=== PATIENT | male | born 1975 | race Caucasian/White ===

== ENCOUNTER 2021-07-26 13:56 | Inpatient (IN) | payer MEDICAID, OTHER ==
[~2021-07-26] VITALS: Ht 160 cm; Wt 78.0 kg
[2021-07-26] MEDS ORDERED: METHYLPREDNISOLONE SOD SUCC 125 MG/2 ML VIAL IV ONE (15:00)
[2021-07-26] MEDS ORDERED: LEVOFLOXACIN 750MG PREMIX 150 ML IV ONE (15:00)
[2021-07-26] MEDS ORDERED: SODIUM CHLORIDE 0.9% 1,000 ML IV ONE (15:00)
[2021-07-26 15:13] LABS: BASOPHILS % 0.3 % (0.0-2.0); HEMATOCRIT. 43.4 % (42.0-52.0); HEMOGLOBIN. 15.3 g/dL (14.0-18.0); MEAN CORPUSCULAR VOLUME 87.8 fL (80.0-94.0); MEAN PLATELET VOLUME 8.7 fl (7.4-10.4); MONOCYTES % 9.1 % (2.0-8.0); NEUTROPHILS % 82.6 % (40.0-76.0); PLATELET 277 x1000/uL (130-400); RED BLOOD CELL COUNT 4.94 mill/uL (4.7-6.1)
[2021-07-26 15:14] LABS: CHLORIDE 97 mEq/L (98-107)
[2021-07-26 15:17] LABS: ETHANOL BLOOD < 10 mg/dL
[2021-07-26 15:46] LABS: INR 1.2; PROTHROMBIN TIME 12.4 sec (9.6-11.0)
[2021-07-26 21:46] LABS: *AMPHETAMINES SCREEN URINE NEGATIVE (NEGATIVE); *BARBITURATES SCREEN URINE NEGATIVE (NEGATIVE)
[2021-07-26 21:47] LABS: *BENZODIAZEPINES SCREEN URINE NEGATIVE (NEGATIVE); *COCAINE SCREEN URINE NEGATIVE (NEGATIVE); CANNABINOID URINE SCREEN NEGATIVE (NEGATIVE); METHADONE URINE SCREEN NEGATIVE (NEGATIVE); OPIATES URINE SCREEN PRESUMTIVE POSITIVE (NEGATIVE); PHENCYCLIDINE URINE SCREEN NEGATIVE (NEGATIVE)
[2021-07-26] MEDS ORDERED: ONDANSETRON HCL 4MG/2ML INJ IV PRN (22:00)
[2021-07-26] MEDS ORDERED: GUAIFENESIN 200MG/10ML SUGAR FREE UDC PO PRN (22:00)
[2021-07-26] MEDS ORDERED: CEFTRIAXONE 1 G PREMIX 50 ML IV SCH (22:30)
[2021-07-26] MEDS: ENOXAPARIN 40MG/0.4ML SYR SUBCUT SCH (22:50)
[2021-07-26 22:55] LABS: CLARITY URINE CLEAR (CLEAR); COLOR URINE DARK YELLOW (YELLOW); PROTEIN URINE 1+ (NEGATIVE)
[2021-07-26 22:56] LABS: KETONES URINE TRACE (NEGATIVE); LEUKOCYTE ESTERASE URINE NEGATIVE (NEGATIVE); NITRITE URINE NEGATIVE (NEGATIVE); OCCULT BLOOD URINE NEGATIVE (NEGATIVE); UROBILINOGEN URINE 0.2 E.U./dL (0.2-1.0)
[2021-07-26] MEDS ORDERED: AZITHROMYCIN 500MG/250ML 500 ML IV SCH (23:00)
[2021-07-26] MEDS ORDERED: DIPHENHYDRAMINE 25MG CAPSULE PO PRN (23:30)
[2021-07-27 04:39] LABS: BASOPHILS % 0.3 % (0.0-2.0); HEMATOCRIT. 44.1 % (42.0-52.0); HEMOGLOBIN. 15.6 g/dL (14.0-18.0); LYMPHOCYTES % 9.7 % (20.0-50.0); MEAN CORPUSCULAR HEMOGLOBIN 31.2 pg (28.0-32.0); MEAN CORPUSCULAR VOLUME 88.3 fL (80.0-94.0); MEAN PLATELET VOLUME 8.3 fl (7.4-10.4); MONOCYTES % 6.2 % (2.0-8.0); NEUTROPHILS % 83.8 % (40.0-76.0); PLATELET 312 x1000/uL (130-400); RED BLOOD CELL COUNT 4.99 mill/uL (4.7-6.1); RED CELL DISTRIBUTION WIDTH 12.9 % (11.6-14.6)
[2021-07-27 04:42] LABS: CHLORIDE 99 mEq/L (98-107)
[2021-07-27 04:49] LABS: PHOSPHORUS 2.8 mg/dL (2.5-4.9)
[2021-07-27 08:30] VITALS: BP 112/71
[2021-07-27 09:00] VITALS: BP 119/88
[2021-07-27] MEDS: DEXAMETHASONE 10 MG/ML VIAL IV SCH (09:12)
[2021-07-27] MEDS ORDERED: INFLUENZA VACCINE 05/PF 0.5 ML SYRINGE IM ONE (10:30)
[2021-07-27] MEDS ORDERED: PNEUMOCOCCAL 23-VAL P-SAC VAC 0.5 ML IM ONE (10:30)
[2021-07-27 12:00] VITALS: BP 126/65
[2021-07-27] MEDS: ALBUTEROL 6.7GM HFA INHALER ORI SCH ×3 (12:48→20:52)
[2021-07-27] MEDS: GUAIFENESIN-DM 200MG-20MG/10ML UDC PO PRN ×2 (12:50→17:22)
[2021-07-27 16:00] VITALS: BP 123/73
[2021-07-27 20:01] VITALS: BP 123/75
[2021-07-27] MEDS: ENOXAPARIN 40MG/0.4ML SYR SUBCUT SCH (20:51)
[2021-07-27] MEDS: CEFTRIAXONE 1,000 MG in DEXTROSE 5% WATER 50 ML IV SCH (20:52)
[2021-07-27] MEDS ORDERED: AZITHROMYCIN 500MG/250ML 500 ML IV SCH (22:00)
[2021-07-28 00:03] VITALS: BP 131/69
[2021-07-28] MEDS: ALBUTEROL 6.7GM HFA INHALER ORI SCH ×7 (00:12→23:33)
[2021-07-28] MEDS: GUAIFENESIN-DM 200MG-20MG/10ML UDC PO PRN ×2 (01:16→08:07)
[2021-07-28 04:00] VITALS: BP 125/69
[2021-07-28 07:15] LABS: HEMATOCRIT. 41.9 % (42.0-52.0); HEMOGLOBIN. 14.2 g/dL (14.0-18.0); MEAN CORPUSCULAR HEMOGLOBIN 30.1 pg (28.0-32.0); MEAN PLATELET VOLUME 8.8 fl (7.4-10.4); PLATELET 403 x1000/uL (130-400); RED CELL DISTRIBUTION WIDTH 13.1 % (11.6-14.6)
[2021-07-28 07:29] LABS: CHLORIDE 100 mEq/L (98-107)
[2021-07-28 07:40] LABS: PHOSPHORUS 3.8 mg/dL (2.5-4.9)
[2021-07-28 08:00] VITALS: BP 106/69
[2021-07-28] MEDS: DEXAMETHASONE 10 MG/ML VIAL IV SCH (08:07)
[2021-07-28] MEDS: BENZONATATE 100MG CAPSULE PO SCH ×2 (11:19→21:26)
[2021-07-28 12:00] VITALS: BP 123/72
[2021-07-28 16:00] VITALS: BP 123/67
[2021-07-28 20:00] VITALS: BP 102/80
[2021-07-28 20:05] LABS: PLATELET ESTIMATE INCREASED
[2021-07-28] MEDS: CEFTRIAXONE 1,000 MG in DEXTROSE 5% WATER 50 ML IV SCH (21:26)
[2021-07-28] MEDS: ACETAMINOPHEN 325MG TABLET PO PRN (21:27)
[2021-07-28] MEDS: ENOXAPARIN 40MG/0.4ML SYR SUBCUT SCH (21:27)
[2021-07-28] MEDS: AZITHROMYCIN 500 MG in DEXT 5% WATER 500 ML IV SCH (23:32)
[2021-07-29] VITALS: BP 115/75
[2021-07-29] MEDS: ALBUTEROL 6.7GM HFA INHALER ORI SCH ×5 (03:19→20:24)
[2021-07-29 04:00] VITALS: BP 115/80
[2021-07-29 05:48] LABS: CHLORIDE 102 mEq/L (98-107)
[2021-07-29 05:56] LABS: HEMATOCRIT. 43.8 % (42.0-52.0); HEMOGLOBIN. 14.9 g/dL (14.0-18.0); LYMPHOCYTES % 8.9 % (20.0-50.0); MEAN CORPUSCULAR HEMOGLOBIN 30.7 pg (28.0-32.0); MEAN CORPUSCULAR VOLUME 90.1 fL (80.0-94.0); MEAN PLATELET VOLUME 8.9 fl (7.4-10.4); MONOCYTES % 13.5 % (2.0-8.0); NEUTROPHILS % 77.6 % (40.0-76.0); PLATELET 454 x1000/uL (130-400); RED BLOOD CELL COUNT 4.86 mill/uL (4.7-6.1); RED CELL DISTRIBUTION WIDTH 13.2 % (11.6-14.6)
[2021-07-29 06:07] LABS: PHOSPHORUS 4.1 mg/dL (2.5-4.9)
[2021-07-29] MEDS: BENZONATATE 100MG CAPSULE PO SCH ×3 (06:10→20:24)
[2021-07-29 06:17] LABS: HEPATITIS B SURFACE AB < 3.1 mIU/mL
[2021-07-29 06:28] LABS: HEPATITIS B SURFACE ANTIGEN NEGATIVE
[2021-07-29 08:00] VITALS: BP 123/81
[2021-07-29] MEDS: DEXAMETHASONE 10 MG/ML VIAL IV SCH (08:01)
[2021-07-29] MEDS: GUAIFENESIN-DM 200MG-20MG/10ML UDC PO PRN (08:01)
[2021-07-29 08:38] LABS: BG BASE EXCESS 2.6 mmol/L (-2.0-2.0); BG CARBOXYHEMOGLOBIN 0.6 % (0.5-1.5); BG DEOXYHEMOGLOBIN 9.8 % (0.0-5.0); BG FRACTION INSPIRED OXYGEN 100; BG HCO3 ACT 25.6 mmol/L (22.0-26.0); BG METHEMOGLOBIN 0.1 % (0.0-1.5); BG OXYGEN SATURATION 90.1 % (92.0-98.5); BG OXYHEMOGLOBIN 89.5 % (94.0-97.0); BG PCO2 34.6 mmHg (35.0-45.0); BG PH 7.487 (7.350-7.450); BG PO2 56.8 mmHg (75.0-100.0); BG SAMPLE SITE RIGHT RADIAL; BG TOTAL HEMOGLOBIN 15.2 g/dL (12.0-18.0); BG VENT MODE MASK - NRB
[2021-07-29 12:00] VITALS: BP 113/74
[2021-07-29 16:00] VITALS: BP 112/70
[2021-07-29 20:00] VITALS: BP 122/88
[2021-07-29] MEDS: ENOXAPARIN 40MG/0.4ML SYR SUBCUT SCH (20:24)
[2021-07-29] MEDS: AZITHROMYCIN 500 MG in DEXT 5% WATER 500 ML IV SCH (20:24)
[2021-07-29] MEDS: CEFTRIAXONE 1,000 MG in DEXTROSE 5% WATER 50 ML IV SCH (20:24)
[2021-07-30] VITALS: BP 113/67
[2021-07-30] MEDS: ALBUTEROL 6.7GM HFA INHALER ORI SCH ×7 (00:15→23:45)
[2021-07-30 04:00] VITALS: BP 132/89
[2021-07-30] MEDS: BENZONATATE 100MG CAPSULE PO SCH ×3 (04:03→22:00)
[2021-07-30 08:00] VITALS: BP 104/68
[2021-07-30] MEDS: DEXAMETHASONE 10 MG/ML VIAL IV SCH (08:43)
[2021-07-30 12:00] VITALS: BP 122/82
[2021-07-30 16:00] VITALS: BP 124/84
[2021-07-30 19:21] VITALS: BP 117/74
[2021-07-30] MEDS: GUAIFENESIN-DM 200MG-20MG/10ML UDC PO PRN (20:44)
[2021-07-30] MEDS: ENOXAPARIN 40MG/0.4ML SYR SUBCUT SCH (20:44)
[2021-07-30] MEDS: CEFTRIAXONE 1,000 MG in DEXTROSE 5% WATER 50 ML IV SCH (20:45)
[2021-07-31] VITALS (7 sets, daily range): BP systolic 98–134; BP diastolic 60–94
[2021-07-31] MEDS: GUAIFENESIN-DM 200MG-20MG/10ML UDC PO PRN ×2 (03:20→12:48)
[2021-07-31] MEDS: AZITHROMYCIN 500 MG TABLET PO SCH ×2 (03:20→03:28)
[2021-07-31] MEDS: BENZONATATE 100MG CAPSULE PO SCH ×3 (07:42→22:06)
[2021-07-31] MEDS: ALBUTEROL 6.7GM HFA INHALER ORI SCH ×6 (07:43→23:45)
[2021-07-31 08:11] LABS: CHLORIDE 101 mEq/L (98-107)
[2021-07-31 08:20] LABS: HEMATOCRIT. 43.6 % (42.0-52.0); HEMOGLOBIN. 14.8 g/dL (14.0-18.0); MEAN CORPUSCULAR HEMOGLOBIN 30.1 pg (28.0-32.0); MEAN CORPUSCULAR VOLUME 88.6 fL (80.0-94.0); MEAN PLATELET VOLUME 7.9 fl (7.4-10.4); PLATELET 584 x1000/uL (130-400); RED BLOOD CELL COUNT 4.91 mill/uL (4.7-6.1); RED CELL DISTRIBUTION WIDTH 13.5 % (11.6-14.6)
[2021-07-31] MEDS: DEXAMETHASONE 10 MG/ML VIAL IV SCH (09:12)
[2021-07-31] MEDS: ACETAMINOPHEN 325MG TABLET PO PRN (09:29)
[2021-07-31 10:04] LABS: BG BASE EXCESS 1.5 mmol/L (-2.0-2.0); BG CARBOXYHEMOGLOBIN 0.4 % (0.5-1.5); BG DEOXYHEMOGLOBIN 4.1 % (0.0-5.0); BG FRACTION INSPIRED OXYGEN 100; BG HCO3 ACT 23.1 mmol/L (22.0-26.0); BG METHEMOGLOBIN 0.1 % (0.0-1.5); BG OXYGEN SATURATION 95.9 % (92.0-98.5); BG OXYHEMOGLOBIN 95.4 % (94.0-97.0); BG PCO2 28.7 mmHg (35.0-45.0); BG PH 7.523 (7.350-7.450); BG PO2 76.3 mmHg (75.0-100.0); BG SAMPLE SITE LEFT BRACHIAL; BG TOTAL HEMOGLOBIN 15.1 g/dL (12.0-18.0); BG VENT MODE MASK - BIPAP
[2021-07-31 18:06] LABS: PLATELET ESTIMATE INCREASED
[2021-07-31] MEDS: ENOXAPARIN 40MG/0.4ML SYR SUBCUT SCH (22:07)
[2021-07-31] MEDS: CEFTRIAXONE 1,000 MG in DEXTROSE 5% WATER 50 ML IV SCH (22:07)
[2021-08-01] VITALS: BP 104/63
[2021-08-01 04:00] VITALS: BP 115/74
[2021-08-01] MEDS: ALBUTEROL 6.7GM HFA INHALER ORI SCH ×5 (05:15→19:44)
[2021-08-01] MEDS: BENZONATATE 100MG CAPSULE PO SCH ×3 (05:15→21:29)
[2021-08-01 08:00] VITALS: BP 113/79
[2021-08-01] MEDS: DEXAMETHASONE 10 MG/ML VIAL IV SCH (08:10)
[2021-08-01 12:00] VITALS: BP 111/74
[2021-08-01 16:00] VITALS: BP 118/73
[2021-08-01] MEDS: ACETAMINOPHEN 325MG TABLET PO PRN (19:44)
[2021-08-01 20:00] VITALS: BP 124/69
[2021-08-01] MEDS: CEFTRIAXONE 1,000 MG in DEXTROSE 5% WATER 50 ML IV SCH (21:28)
[2021-08-01] MEDS: ENOXAPARIN 40MG/0.4ML SYR SUBCUT SCH (21:29)
[2021-08-02] VITALS: BP 105/68
[2021-08-02] MEDS: ALBUTEROL 6.7GM HFA INHALER ORI SCH ×6 (00:06→21:14)
[2021-08-02 04:00] VITALS: BP 105/72
[2021-08-02] MEDS: BENZONATATE 100MG CAPSULE PO SCH ×3 (06:10→21:13)
[2021-08-02 08:00] VITALS: BP 111/81
[2021-08-02] MEDS: DEXAMETHASONE 10 MG/ML VIAL IV SCH (08:26)
[2021-08-02] MEDS: GUAIFENESIN-DM 200MG-20MG/10ML UDC PO PRN ×2 (08:26→18:53)
[2021-08-02] MEDS: ACETAMINOPHEN 325MG TABLET PO PRN ×2 (08:26→18:53)
[2021-08-02 12:00] VITALS: BP 108/59
[2021-08-02 12:33] LABS: BG CARBOXYHEMOGLOBIN 0.2 % (0.5-1.5); BG DEOXYHEMOGLOBIN 4.4 % (0.0-5.0); BG FRACTION INSPIRED OXYGEN 100; BG HCO3 ACT 26.6 mmol/L (22.0-26.0); BG METHEMOGLOBIN 0.3 % (0.0-1.5); BG OXYGEN SATURATION 95.6 % (92.0-98.5); BG OXYHEMOGLOBIN 95.1 % (94.0-97.0); BG PCO2 41.3 mmHg (35.0-45.0); BG PH 7.426 (7.350-7.450); BG PO2 81.7 mmHg (75.0-100.0); BG SAMPLE SITE RIGHT BRACHIAL; BG TOTAL HEMOGLOBIN 15.3 g/dL (12.0-18.0); BG TOTAL RESPIRATORY RATE 34 b/min; BG VENT MODE MASK - BIPAP
[2021-08-02 16:00] VITALS: BP 106/63
[2021-08-02 20:00] VITALS: BP 105/71
[2021-08-02] MEDS: ENOXAPARIN 40MG/0.4ML SYR SUBCUT SCH (21:14)
[2021-08-03] VITALS (29 sets, daily range): BP systolic 103–152; BP diastolic 62–101
[2021-08-03] MEDS: ALBUTEROL 6.7GM HFA INHALER ORI SCH ×6 (02:09→21:27)
[2021-08-03] MEDS: GUAIFENESIN-DM 200MG-20MG/10ML UDC PO PRN (02:09)
[2021-08-03] MEDS: ACETAMINOPHEN 325MG TABLET PO PRN ×4 (02:10→20:11)
[2021-08-03] MEDS: BENZONATATE 100MG CAPSULE PO SCH ×3 (06:31→21:16)
[2021-08-03] MEDS: DEXAMETHASONE 10 MG/ML VIAL IV SCH (08:05)
[2021-08-03 10:09] LABS: BG BASE EXCESS 1.2 mmol/L (-2.0-2.0); BG CARBOXYHEMOGLOBIN 0.3 % (0.5-1.5); BG DEOXYHEMOGLOBIN 11.2 % (0.0-5.0); BG FRACTION INSPIRED OXYGEN 100; BG HCO3 ACT 25.1 mmol/L (22.0-26.0); BG OXYGEN SATURATION 88.8 % (92.0-98.5); BG OXYHEMOGLOBIN 88.5 % (94.0-97.0); BG PCO2 37.5 mmHg (35.0-45.0); BG PH 7.443 (7.350-7.450); BG PO2 58.2 mmHg (75.0-100.0); BG SAMPLE SITE LEFT BRACHIAL; BG TOTAL HEMOGLOBIN 14.9 g/dL (12.0-18.0); BG TOTAL RESPIRATORY RATE 35 b/min; BG VENT MODE MASK - BIPAP
[2021-08-03 16:10] LABS: BG BASE EXCESS 2.8 mmol/L (-2.0-2.0); BG CARBOXYHEMOGLOBIN 0.3 % (0.5-1.5); BG DEOXYHEMOGLOBIN 23.2 % (0.0-5.0); BG FRACTION INSPIRED OXYGEN 100; BG HCO3 ACT 26.5 mmol/L (22.0-26.0); BG METHEMOGLOBIN 0.1 % (0.0-1.5); BG OXYGEN SATURATION 76.7 % (92.0-98.5); BG OXYHEMOGLOBIN 76.4 % (94.0-97.0); BG PCO2 37.9 mmHg (35.0-45.0); BG PH 7.462 (7.350-7.450); BG PO2 41.3 mmHg (75.0-100.0); BG SAMPLE SITE RIGHT RADIAL; BG TOTAL HEMOGLOBIN 15.1 g/dL (12.0-18.0); BG VENT MODE MASK - BIPAP
[2021-08-03] MEDS: ENOXAPARIN 40MG/0.4ML SYR SUBCUT SCH (20:11)
[2021-08-04] VITALS (83 sets, daily range): BP systolic 97–156; BP diastolic 21–103
[2021-08-04] MEDS: ALBUTEROL 6.7GM HFA INHALER ORI SCH ×6 (01:29→21:20)
[2021-08-04] MEDS: GUAIFENESIN-DM 200MG-20MG/10ML UDC PO PRN (01:37)
[2021-08-04] MEDS: ACETAMINOPHEN 325MG TABLET PO PRN ×4 (01:38→21:42)
[2021-08-04] MEDS: BENZONATATE 100MG CAPSULE PO SCH ×3 (05:04→21:42)
[2021-08-04 05:41] LABS: HEMATOCRIT. 40.4 % (42.0-52.0); HEMOGLOBIN. 13.7 g/dL (14.0-18.0); MEAN CORPUSCULAR HEMOGLOBIN 30.6 pg (28.0-32.0); MEAN CORPUSCULAR VOLUME 90.2 fL (80.0-94.0); MEAN PLATELET VOLUME 7.8 fl (7.4-10.4); PLATELET 585 x1000/uL (130-400); RED BLOOD CELL COUNT 4.49 mill/uL (4.7-6.1); RED CELL DISTRIBUTION WIDTH 13.2 % (11.6-14.6)
[2021-08-04 06:50] LABS: CHLORIDE 104 mEq/L (98-107)
[2021-08-04 08:12] LABS: PLATELET ESTIMATE INCREAS
[2021-08-04] MEDS: DEXAMETHASONE 10 MG/ML VIAL IV SCH (09:10)
[2021-08-04 11:52] LABS: BG BASE EXCESS 2.9 mmol/L (-2.0-2.0); BG CARBOXYHEMOGLOBIN 0.8 % (0.5-1.5); BG DEOXYHEMOGLOBIN 23.3 % (0.0-5.0); BG FRACTION INSPIRED OXYGEN 100; BG METHEMOGLOBIN 0.3 % (0.0-1.5); BG OXYGEN SATURATION 76.4 % (92.0-98.5); BG OXYHEMOGLOBIN 75.6 % (94.0-97.0); BG PCO2 35.6 mmHg (35.0-45.0); BG PH 7.482 (7.350-7.450); BG PO2 41.1 mmHg (75.0-100.0); BG SAMPLE SITE LEFT BRACHIAL; BG TOTAL HEMOGLOBIN 15.5 g/dL (12.0-18.0); BG TOTAL RESPIRATORY RATE 34 b/min; BG VENT MODE MASK - CPAP
[2021-08-04] MEDS: ENOXAPARIN 40MG/0.4ML SYR SUBCUT SCH (21:42)
[2021-08-05] VITALS (73 sets, daily range): BP systolic 77–147; BP diastolic 36–116
[2021-08-05] MEDS: ALBUTEROL 6.7GM HFA INHALER ORI SCH ×3 (00:23→20:24)
[2021-08-05] MEDS: ACETAMINOPHEN 325MG TABLET PO PRN ×3 (04:51→19:51)
[2021-08-05] MEDS: BENZONATATE 100MG CAPSULE PO SCH ×3 (05:43→22:54)
[2021-08-05] MEDS: DEXAMETHASONE 10 MG/ML VIAL IV SCH (09:21)
[2021-08-05] MEDS: CEFEPIME 2,000 MG in DEXT 5% WATER 100 ML IV SCH ×2 (18:04→22:55)
[2021-08-05] MEDS: ENOXAPARIN 40MG/0.4ML SYR SUBCUT SCH (20:09)
[2021-08-06] VITALS (102 sets, daily range): BP systolic 74–177; BP diastolic 47–115
[2021-08-06] MEDS: ALBUTEROL 6.7GM HFA INHALER ORI SCH ×5 (00:54→20:39)
[2021-08-06] MEDS: ACETAMINOPHEN 325MG TABLET PO PRN (02:02)
[2021-08-06 05:22] LABS: HEMATOCRIT. 45.3 % (42.0-52.0); HEMOGLOBIN. 15.2 g/dL (14.0-18.0); MEAN CORPUSCULAR HEMOGLOBIN 30.7 pg (28.0-32.0); MEAN CORPUSCULAR VOLUME 91.5 fL (80.0-94.0); PLATELET 193 x1000/uL (130-400); RED BLOOD CELL COUNT 4.95 mill/uL (4.7-6.1); RED CELL DISTRIBUTION WIDTH 13.5 % (11.6-14.6)
[2021-08-06 05:38] LABS: CHLORIDE 101 mEq/L (98-107)
[2021-08-06] MEDS: BENZONATATE 100MG CAPSULE PO SCH ×3 (06:00→21:53)
[2021-08-06] MEDS ORDERED: MORPHINE SULFATE 2 MG/ML CPJ (NOT FOR IM USE) IV SCH (07:00)
[2021-08-06] MEDS ORDERED: MIDAZOLAM HCL 100 MG in SODIUM CHLORIDE 0.9% 100 ML IV PRN (07:15)
[2021-08-06] MEDS ORDERED: MIDAZOLAM 100MG/100ML PMX 100 ML IV PRN (07:15)
[2021-08-06] MEDS ORDERED: FENTANYL CITRATE/PF 500 MCG in SODIUM CHLORIDE 0.9% 40 ML IV PRN (07:15)
[2021-08-06] MEDS: FENTANYL CITRATE 2,500 MCG in SODIUM CHLORIDE 0.9% 200 ML IV PRN ×3 (08:15→23:00)
[2021-08-06] MEDS: PROPOFOL 10MG/ML 100ML 100 ML IV PRN ×4 (08:16→22:59)
[2021-08-06] MEDS: DEXAMETHASONE 10 MG/ML VIAL IV SCH (09:40)
[2021-08-06] MEDS: CEFEPIME 2,000 MG in DEXT 5% WATER 100 ML IV SCH ×2 (09:40→20:29)
[2021-08-06] MEDS ORDERED: ETOMIDATE 2MG/ML 10ML VIAL IV ONE (09:47)
[2021-08-06] MEDS ORDERED: VECURONIUM BROMIDE 10 MG/VIAL IV ONE (09:47)
[2021-08-06] MEDS ORDERED: SUCCINYLCHOLINE CHLORIDE 200MG/10ML IV ONE (09:47)
[2021-08-06 10:12] LABS: BG BASE EXCESS -2.4 mmol/L (-2.0-2.0); BG CARBOXYHEMOGLOBIN 0.7 % (0.5-1.5); BG DEOXYHEMOGLOBIN 19.3 % (0.0-5.0); BG FRACTION INSPIRED OXYGEN 100; BG HCO3 ACT 25.1 mmol/L (22.0-26.0); BG METHEMOGLOBIN 0.3 % (0.0-1.5); BG OXYGEN SATURATION 80.5 % (92.0-98.5); BG OXYHEMOGLOBIN 79.7 % (94.0-97.0); BG PCO2 52.7 mmHg (35.0-45.0); BG PH 7.295 (7.350-7.450); BG PO2 54.5 mmHg (75.0-100.0); BG SAMPLE SITE RIGHT RADIAL; BG TOTAL HEMOGLOBIN 17.1 g/dL (12.0-18.0); BG VENT MODE VENT - AC
[2021-08-06] MEDS ORDERED: LIDOCAINE HCL 1% 20ML VIAL (Pyxis) INJ ONE (10:38)
[2021-08-06] MEDS: MIDAZOLAM HCL 100 MG in SODIUM CHLORIDE 0.9% 80 ML IV PRN (13:30)
[2021-08-06] MEDS: PHENYLEPHRINE 50 MG in DEXT 5% WATER 245 ML IV PRN ×3 (13:31→22:59)
[2021-08-06 13:47] LABS: PLATELET ESTIMATE NORMAL
[2021-08-06] MEDS: ENOXAPARIN 40MG/0.4ML SYR SUBCUT SCH (20:30)
[2021-08-07] VITALS (97 sets, daily range): BP systolic 73–138; BP diastolic 50–99
[2021-08-07] MEDS: ALBUTEROL 6.7GM HFA INHALER ORI SCH ×6 (00:37→20:40)
[2021-08-07] MEDS: MIDAZOLAM HCL 100 MG in SODIUM CHLORIDE 0.9% 80 ML IV PRN ×4 (02:00→23:11)
[2021-08-07] MEDS: FENTANYL CITRATE 2,500 MCG in SODIUM CHLORIDE 0.9% 200 ML IV PRN ×4 (02:00→22:03)
[2021-08-07] MEDS: PROPOFOL 10MG/ML 100ML 100 ML IV PRN ×4 (02:25→22:05)
[2021-08-07] MEDS: ACETAMINOPHEN 325MG TABLET PO PRN (05:00)
[2021-08-07] MEDS: BENZONATATE 100MG CAPSULE PO SCH (05:29)
[2021-08-07] MEDS: DEXAMETHASONE 10 MG/ML VIAL IV SCH (08:22)
[2021-08-07] MEDS: CEFEPIME 2,000 MG in DEXT 5% WATER 100 ML IV SCH ×2 (08:22→20:27)
[2021-08-07 09:18] LABS: BG BASE EXCESS -1.9 mmol/L (-2.0-2.0); BG CARBOXYHEMOGLOBIN 0.3 % (0.5-1.5); BG DEOXYHEMOGLOBIN 10.3 % (0.0-5.0); BG HCO3 ACT 25.6 mmol/L (22.0-26.0); BG METHEMOGLOBIN 0.5 % (0.0-1.5); BG OXYGEN SATURATION 89.6 % (92.0-98.5); BG OXYHEMOGLOBIN 88.9 % (94.0-97.0); BG PCO2 53.5 mmHg (35.0-45.0); BG PH 7.298 (7.350-7.450); BG PO2 63.2 mmHg (75.0-100.0); BG SAMPLE SITE RIGHT RADIAL; BG TOTAL HEMOGLOBIN 17.4 g/dL (12.0-18.0); BG VENT MODE VENT - AC
[2021-08-07] MEDS: PHENYLEPHRINE 50 MG in DEXT 5% WATER 245 ML IV PRN ×3 (09:59→22:28)
[2021-08-07] MEDS ORDERED: BISACODYL 10MG SUPP PR PRN (11:30)
[2021-08-07 12:06] LABS: HEMATOCRIT. 50.7 % (42.0-52.0); HEMOGLOBIN. 16.4 g/dL (14.0-18.0); MEAN CORPUSCULAR HEMOGLOBIN 30.5 pg (28.0-32.0); MEAN CORPUSCULAR VOLUME 94.5 fL (80.0-94.0); MEAN PLATELET VOLUME 9.6 fl (7.4-10.4); PLATELET 167 x1000/uL (130-400); RED BLOOD CELL COUNT 5.37 mill/uL (4.7-6.1); RED CELL DISTRIBUTION WIDTH 14.3 % (11.6-14.6)
[2021-08-07 12:09] LABS: CHLORIDE 105 mEq/L (98-107)
[2021-08-07 12:25] LABS: PLATELET ESTIMATE NORMAL
[2021-08-07] MEDS ORDERED: SODIUM POLYSTYRENE SULFONATE 15 G/60 ML BOT PO SCH (13:45)
[2021-08-07] MEDS: DOCUSATE SODIUM SUGAR FREE 100MG/10ML UDC NG SCH (16:01)
[2021-08-07] MEDS ORDERED: SODIUM CHLORIDE 0.9% 500 ML IV ONE ×2 (17:15→19:15)
[2021-08-07] MEDS: ENOXAPARIN 40MG/0.4ML SYR SUBCUT SCH (20:26)
[2021-08-07] MEDS: FAMOTIDINE 20MG/2ML VIAL IV SCH (20:27)
[2021-08-08] VITALS (58 sets, daily range): BP systolic 78–127; BP diastolic 49–84
[2021-08-08] MEDS: ALBUTEROL 6.7GM HFA INHALER ORI SCH ×2 (00:40→04:52)
[2021-08-08] MEDS: ACETAMINOPHEN 325MG TABLET PO PRN (01:55)
[2021-08-08] MEDS: PROPOFOL 10MG/ML 100ML 100 ML IV PRN ×3 (04:14→20:58)
[2021-08-08] MEDS: PHENYLEPHRINE 50 MG in DEXT 5% WATER 245 ML IV PRN ×2 (05:07→23:58)
[2021-08-08] MEDS: FENTANYL CITRATE 2,500 MCG in SODIUM CHLORIDE 0.9% 200 ML IV PRN ×2 (05:41→22:18)
[2021-08-08 05:46] LABS: HEMATOCRIT. 46.6 % (42.0-52.0); HEMOGLOBIN. 15.1 g/dL (14.0-18.0); MEAN CORPUSCULAR HEMOGLOBIN 30.2 pg (28.0-32.0); MEAN CORPUSCULAR VOLUME 93.5 fL (80.0-94.0); MEAN PLATELET VOLUME 9.6 fl (7.4-10.4); PLATELET 122 x1000/uL (130-400); RED BLOOD CELL COUNT 4.98 mill/uL (4.7-6.1)
[2021-08-08 05:51] LABS: CHLORIDE 111 mEq/L (98-107)
[2021-08-08] MEDS: MIDAZOLAM HCL 100 MG in SODIUM CHLORIDE 0.9% 80 ML IV PRN (06:56)
[2021-08-08 08:50] LABS: PLATELET ESTIMATE SLIGHTLY DECREASED
[2021-08-08] MEDS: FAMOTIDINE 20MG/2ML VIAL IV SCH ×2 (08:53→20:50)
[2021-08-08] MEDS: CEFEPIME 2,000 MG in DEXT 5% WATER 100 ML IV SCH ×2 (08:53→20:50)
[2021-08-08] MEDS: DEXAMETHASONE 10 MG/ML VIAL IV SCH (08:54)
[2021-08-08] MEDS: DOCUSATE SODIUM SUGAR FREE 100MG/10ML UDC NG SCH (09:00)
[2021-08-08] MEDS ORDERED: PROPOFOL 10MG/ML 100ML 100 ML IV PRN (10:00)
[2021-08-08 10:08] LABS: BG BASE EXCESS -4.9 mmol/L (-2.0-2.0); BG CARBOXYHEMOGLOBIN 0.7 % (0.5-1.5); BG DEOXYHEMOGLOBIN 12.2 % (0.0-5.0); BG FRACTION INSPIRED OXYGEN 100; BG HCO3 ACT 22.8 mmol/L (22.0-26.0); BG METHEMOGLOBIN 0.3 % (0.0-1.5); BG OXYGEN SATURATION 87.7 % (92.0-98.5); BG OXYHEMOGLOBIN 86.8 % (94.0-97.0); BG PCO2 51.9 mmHg (35.0-45.0); BG PO2 59.2 mmHg (75.0-100.0); BG SAMPLE SITE RIGHT RADIAL; BG TOTAL HEMOGLOBIN 16.5 g/dL (12.0-18.0); BG VENT MODE PRVC
[2021-08-08] MEDS ORDERED: VANCOMYCIN 1,250 MG in DEXT 5% WATER 250 ML IV SCH (12:00)
[2021-08-08] MEDS: IPRATROPIUM BROMIDE (0.02%) 0.5MG/2.5ML NEB HHN SCH ×2 (16:40→21:58)
[2021-08-08] MEDS: ENOXAPARIN 40MG/0.4ML SYR SUBCUT SCH (20:50)
[2021-08-08] MEDS: VANCOMYCIN 750 MG PREMIX 150 ML IV SCH (22:16)
[2021-08-09] VITALS (84 sets, daily range): BP systolic 85–169; BP diastolic 53–88
[2021-08-09] MEDS: IPRATROPIUM BROMIDE (0.02%) 0.5MG/2.5ML NEB HHN SCH ×6 (01:18→21:00)
[2021-08-09] MEDS: PROPOFOL 10MG/ML 100ML 100 ML IV PRN ×4 (01:51→22:14)
[2021-08-09] MEDS: MIDAZOLAM HCL 100 MG in SODIUM CHLORIDE 0.9% 80 ML IV PRN ×3 (02:25→19:40)
[2021-08-09] MEDS: SODIUM CHLORIDE 0.9% 1,000 ML IV SCH ×2 (04:20→14:12)
[2021-08-09] MEDS: PHENYLEPHRINE 50 MG in DEXT 5% WATER 245 ML IV PRN ×3 (05:37→18:01)
[2021-08-09] MEDS: VANCOMYCIN 750 MG PREMIX 150 ML IV SCH (05:43)
[2021-08-09 06:00] LABS: CHLORIDE 110 mEq/L (98-107)
[2021-08-09] MEDS: FENTANYL CITRATE 2,500 MCG in SODIUM CHLORIDE 0.9% 200 ML IV PRN ×3 (06:30→19:40)
[2021-08-09 08:40] LABS: BG BASE EXCESS -4.2 mmol/L (-2.0-2.0); BG CARBOXYHEMOGLOBIN 0.3 % (0.5-1.5); BG DEOXYHEMOGLOBIN 10.4 % (0.0-5.0); BG METHEMOGLOBIN 0.1 % (0.0-1.5); BG OXYGEN SATURATION 89.6 % (92.0-98.5); BG OXYHEMOGLOBIN 89.2 % (94.0-97.0); BG PCO2 56.8 mmHg (35.0-45.0); BG PH 7.244 (7.350-7.450); BG PO2 64.1 mmHg (75.0-100.0); BG SAMPLE SITE RIGHT RADIAL; BG TOTAL HEMOGLOBIN 15.3 g/dL (12.0-18.0); BG VENT MODE VENT- PRVC
[2021-08-09] MEDS: FAMOTIDINE 20MG/2ML VIAL IV SCH ×2 (08:53→20:27)
[2021-08-09] MEDS: DOCUSATE SODIUM SUGAR FREE 100MG/10ML UDC NG SCH ×3 (08:53→16:36)
[2021-08-09] MEDS: DEXAMETHASONE 10 MG/ML VIAL IV SCH (08:53)
[2021-08-09] MEDS: CEFEPIME 2,000 MG in DEXT 5% WATER 100 ML IV SCH ×2 (08:54→20:27)
[2021-08-09 09:36] LABS: HEMATOCRIT. 49.8 % (42.0-52.0); MEAN CORPUSCULAR HEMOGLOBIN 29.5 pg (28.0-32.0); MEAN CORPUSCULAR VOLUME 97.8 fL (80.0-94.0); MEAN PLATELET VOLUME 9.5 fl (7.4-10.4); PLATELET 78 x1000/uL (130-400); RED BLOOD CELL COUNT 5.09 mill/uL (4.7-6.1); RED CELL DISTRIBUTION WIDTH 14.9 % (11.6-14.6)
[2021-08-09 10:17] LABS: PLATELET ESTIMATE DECREASED
[2021-08-09] MEDS: VANCOMYCIN 1 G PREMIX 200 ML IV SCH ×2 (16:36→21:20)
[2021-08-09] MEDS: ENOXAPARIN 40MG/0.4ML SYR SUBCUT SCH (20:27)
[2021-08-10] VITALS (96 sets, daily range): BP systolic 64–128; BP diastolic 42–82
[2021-08-10] MEDS: IPRATROPIUM BROMIDE (0.02%) 0.5MG/2.5ML NEB HHN SCH ×6 (01:17→20:39)
[2021-08-10] MEDS: PROPOFOL 10MG/ML 100ML 100 ML IV PRN ×5 (03:13→20:50)
[2021-08-10] MEDS: FENTANYL CITRATE 2,500 MCG in SODIUM CHLORIDE 0.9% 200 ML IV PRN ×3 (03:33→18:38)
[2021-08-10] MEDS: SODIUM CHLORIDE 0.9% 1,000 ML IV SCH ×2 (04:25→19:06)
[2021-08-10] MEDS: VANCOMYCIN 1 G PREMIX 200 ML IV SCH ×3 (06:29→22:27)
[2021-08-10 08:18] LABS: BG BASE EXCESS -4.7 mmol/L (-2.0-2.0); BG CARBOXYHEMOGLOBIN 0.8 % (0.5-1.5); BG DEOXYHEMOGLOBIN 11.2 % (0.0-5.0); BG HCO3 ACT 24.5 mmol/L (22.0-26.0); BG METHEMOGLOBIN 0.4 % (0.0-1.5); BG OXYGEN SATURATION 88.7 % (92.0-98.5); BG OXYHEMOGLOBIN 87.6 % (94.0-97.0); BG PCO2 64.3 mmHg (35.0-45.0); BG PH 7.199 (7.350-7.450); BG PO2 59.6 mmHg (75.0-100.0); BG SAMPLE SITE RIGHT FEMORAL; BG TOTAL HEMOGLOBIN 13.9 g/dL (12.0-18.0); BG VENT MODE VENT- PRVC
[2021-08-10] MEDS: DOCUSATE SODIUM SUGAR FREE 100MG/10ML UDC NG SCH ×2 (08:40→16:53)
[2021-08-10] MEDS: CEFEPIME 2,000 MG in DEXT 5% WATER 100 ML IV SCH ×2 (08:40→20:13)
[2021-08-10] MEDS: DEXAMETHASONE 10 MG/ML VIAL IV SCH (08:40)
[2021-08-10] MEDS: FAMOTIDINE 20MG/2ML VIAL IV SCH ×2 (08:40→20:13)
[2021-08-10] MEDS: PHENYLEPHRINE 50 MG in DEXT 5% WATER 245 ML IV PRN ×4 (08:45→23:44)
[2021-08-10] MEDS: MIDAZOLAM HCL 100 MG in SODIUM CHLORIDE 0.9% 80 ML IV PRN ×2 (08:45→18:41)
[2021-08-10] MEDS: ENOXAPARIN 40MG/0.4ML SYR SUBCUT SCH (20:13)
[2021-08-10] MEDS: ACETAMINOPHEN 325MG TABLET PO PRN (20:24)
[2021-08-10] MEDS ORDERED: NOREPINEPHRINE 32 MG in DEXT 5% WATER 218 ML IV PRN (22:15)
[2021-08-10] MEDS: VASOPRESSIN 20 UNIT in SODIUM CHLORIDE 0.9% 99 ML IV PRN (22:43)
[2021-08-11] VITALS (98 sets, daily range): BP systolic 73–150; BP diastolic 29–110
[2021-08-11] MEDS: IPRATROPIUM BROMIDE (0.02%) 0.5MG/2.5ML NEB HHN SCH ×6 (00:10→20:31)
[2021-08-11 01:51] LABS: BG BASE EXCESS -9.8 mmol/L (-2.0-2.0); BG CARBOXYHEMOGLOBIN 0.6 % (0.5-1.5); BG DEOXYHEMOGLOBIN 22.8 % (0.0-5.0); BG FRACTION INSPIRED OXYGEN 100; BG HCO3 ACT 20.4 mmol/L (22.0-26.0); BG METHEMOGLOBIN 0.3 % (0.0-1.5); BG OXYHEMOGLOBIN 76.3 % (94.0-97.0); BG PCO2 64.3 mmHg (35.0-45.0); BG PO2 45.5 mmHg (75.0-100.0); BG SAMPLE SITE LEFT FEMORAL; BG TOTAL HEMOGLOBIN 14.1 g/dL (12.0-18.0); BG VENT MODE VENT - AC
[2021-08-11] MEDS: FENTANYL CITRATE 2,500 MCG in SODIUM CHLORIDE 0.9% 200 ML IV PRN (02:55)
[2021-08-11] MEDS: PROPOFOL 10MG/ML 100ML 100 ML IV PRN ×5 (02:59→23:03)
[2021-08-11] MEDS ORDERED: SODIUM BICARBONATE 8.4% 1 MEQ/ML 50ML SYR IV NR (03:30)
[2021-08-11] MEDS: PHENYLEPHRINE 50 MG in DEXT 5% WATER 245 ML IV PRN ×3 (04:09→12:57)
[2021-08-11] MEDS: VASOPRESSIN 20 UNIT in SODIUM CHLORIDE 0.9% 99 ML IV PRN (05:17)
[2021-08-11] MEDS: VANCOMYCIN 1 G PREMIX 200 ML IV SCH (05:21)
[2021-08-11] MEDS: MIDAZOLAM HCL 100 MG in SODIUM CHLORIDE 0.9% 80 ML IV PRN ×2 (07:15→19:12)
[2021-08-11] MEDS: FAMOTIDINE 20MG/2ML VIAL IV SCH (09:00)
[2021-08-11] MEDS: DOCUSATE SODIUM SUGAR FREE 100MG/10ML UDC NG SCH ×2 (09:00→17:45)
[2021-08-11] MEDS: DEXAMETHASONE 10 MG/ML VIAL IV SCH (09:00)
[2021-08-11] MEDS: SODIUM CHLORIDE 0.9% 1,000 ML IV SCH ×2 (09:01→23:32)
[2021-08-11 09:08] LABS: BG BASE EXCESS -8.2 mmol/L (-2.0-2.0); BG CARBOXYHEMOGLOBIN 0.6 % (0.5-1.5); BG DEOXYHEMOGLOBIN 11.5 % (0.0-5.0); BG FRACTION INSPIRED OXYGEN 100; BG HCO3 ACT 21.2 mmol/L (22.0-26.0); BG METHEMOGLOBIN 0.1 % (0.0-1.5); BG OXYGEN SATURATION 88.4 % (92.0-98.5); BG OXYHEMOGLOBIN 87.8 % (94.0-97.0); BG PCO2 60.3 mmHg (35.0-45.0); BG PH 7.164 (7.350-7.450); BG PO2 58.7 mmHg (75.0-100.0); BG SAMPLE SITE RIGHT RADIAL; BG TOTAL HEMOGLOBIN 14.1 g/dL (12.0-18.0); BG VENT MODE VENT - PRVC
[2021-08-11] MEDS: FENTANYL CITRATE/PF 2,500 MCG in SODIUM CHLORIDE 0.9% 200 ML IV PRN ×2 (11:18→19:56)
[2021-08-11 13:35] LABS: BG BASE EXCESS -6.6 mmol/L (-2.0-2.0); BG CARBOXYHEMOGLOBIN 1.1 % (0.5-1.5); BG DEOXYHEMOGLOBIN 11.3 % (0.0-5.0); BG FRACTION INSPIRED OXYGEN 100; BG HCO3 ACT 22.6 mmol/L (22.0-26.0); BG METHEMOGLOBIN 0.2 % (0.0-1.5); BG OXYGEN SATURATION 88.6 % (92.0-98.5); BG OXYHEMOGLOBIN 87.4 % (94.0-97.0); BG PCO2 61.1 mmHg (35.0-45.0); BG PH 7.185 (7.350-7.450); BG PO2 59.1 mmHg (75.0-100.0); BG SAMPLE SITE RIGHT RADIAL; BG TOTAL HEMOGLOBIN 13.9 g/dL (12.0-18.0); BG VENT MODE PRVC
[2021-08-11] MEDS: PHENYLEPHRINE 100 MG in DEXT 5% WATER 240 ML IV PRN (17:46)
[2021-08-11 17:52] LABS: BG BASE EXCESS -7.1 mmol/L (-2.0-2.0); BG CARBOXYHEMOGLOBIN 0.7 % (0.5-1.5); BG DEOXYHEMOGLOBIN 10.6 % (0.0-5.0); BG FRACTION INSPIRED OXYGEN 100; BG HCO3 ACT 20.8 mmol/L (22.0-26.0); BG METHEMOGLOBIN 0.4 % (0.0-1.5); BG OXYGEN SATURATION 89.3 % (92.0-98.5); BG OXYHEMOGLOBIN 88.3 % (94.0-97.0); BG PCO2 51.4 mmHg (35.0-45.0); BG PH 7.224 (7.350-7.450); BG PO2 58.7 mmHg (75.0-100.0); BG SAMPLE SITE LEFT RADIAL; BG TOTAL HEMOGLOBIN 13.4 g/dL (12.0-18.0); BG VENT MODE PRVC
[2021-08-11] MEDS ORDERED: SODIUM POLYSTYRENE SULFONATE 15 G/60 ML BOT PO NR (18:00)
[2021-08-11] MEDS: ENOXAPARIN 40MG/0.4ML SYR SUBCUT SCH (21:00)
[2021-08-12] VITALS (98 sets, daily range): BP systolic 70–159; BP diastolic 35–106
[2021-08-12] MEDS: IPRATROPIUM BROMIDE (0.02%) 0.5MG/2.5ML NEB HHN SCH ×6 (00:36→20:01)
[2021-08-12] MEDS: FENTANYL CITRATE/PF 2,500 MCG in SODIUM CHLORIDE 0.9% 200 ML IV PRN ×3 (03:55→18:31)
[2021-08-12] MEDS: PROPOFOL 10MG/ML 100ML 100 ML IV PRN ×4 (03:56→22:52)
[2021-08-12 04:25] LABS: BG BASE EXCESS -10.2 mmol/L (-2.0-2.0); BG CARBOXYHEMOGLOBIN 0.6 % (0.5-1.5); BG DEOXYHEMOGLOBIN 17.7 % (0.0-5.0); BG FRACTION INSPIRED OXYGEN 100; BG HCO3 ACT 18.3 mmol/L (22.0-26.0); BG METHEMOGLOBIN 0.4 % (0.0-1.5); BG OXYGEN SATURATION 82.1 % (92.0-98.5); BG OXYHEMOGLOBIN 81.3 % (94.0-97.0); BG PCO2 50.7 mmHg (35.0-45.0); BG PH 7.175 (7.350-7.450); BG PO2 53.2 mmHg (75.0-100.0); BG SAMPLE SITE RIGHT RADIAL; BG TOTAL HEMOGLOBIN 13.2 g/dL (12.0-18.0); BG VENT MODE VENT-PRVC
[2021-08-12] MEDS: PHENYLEPHRINE 100 MG in DEXT 5% WATER 240 ML IV PRN ×2 (04:35→10:36)
[2021-08-12] MEDS ORDERED: SODIUM BICARBONATE 8.4% 1 MEQ/ML 50ML SYR IV NR (05:30)
[2021-08-12 08:25] LABS: BG BASE EXCESS -5.9 mmol/L (-2.0-2.0); BG CARBOXYHEMOGLOBIN 0.8 % (0.5-1.5); BG HCO3 ACT 22.1 mmol/L (22.0-26.0); BG METHEMOGLOBIN 0.4 % (0.0-1.5); BG OXYGEN SATURATION 79.8 % (92.0-98.5); BG OXYHEMOGLOBIN 78.8 % (94.0-97.0); BG PCO2 54.4 mmHg (35.0-45.0); BG PH 7.227 (7.350-7.450); BG PO2 47.8 mmHg (75.0-100.0); BG TOTAL HEMOGLOBIN 12.7 g/dL (12.0-18.0)
[2021-08-12] MEDS: MIDAZOLAM HCL 100 MG in SODIUM CHLORIDE 0.9% 80 ML IV PRN ×2 (08:33→18:32)
[2021-08-12 08:54] LABS: HEMATOCRIT. 40.9 % (42.0-52.0); HEMOGLOBIN. 12.4 g/dL (14.0-18.0); MEAN CORPUSCULAR HEMOGLOBIN 30.1 pg (28.0-32.0); MEAN CORPUSCULAR VOLUME 99.7 fL (80.0-94.0); PLATELET 107 x1000/uL (130-400); RED CELL DISTRIBUTION WIDTH 15.5 % (11.6-14.6)
[2021-08-12] MEDS: FAMOTIDINE 20MG/2ML VIAL IV SCH (09:04)
[2021-08-12] MEDS: DEXAMETHASONE 10 MG/ML VIAL IV SCH (09:05)
[2021-08-12] MEDS: VASOPRESSIN 20 UNIT in SODIUM CHLORIDE 0.9% 99 ML IV PRN (09:06)
[2021-08-12] MEDS: DOCUSATE SODIUM SUGAR FREE 100MG/10ML UDC NG SCH ×2 (10:38→18:35)
[2021-08-12] MEDS: FUROSEMIDE 100MG/10ML VIAL IVP SCH ×2 (10:38→21:38)
[2021-08-12] MEDS ORDERED: ALBUMIN HUMAN 25GM/100ML (25%) IV NR (11:00)
[2021-08-12] MEDS ORDERED: SODIUM POLYSTYRENE SULFONATE 15 G/60 ML BOT PO NR (11:00)
[2021-08-12 11:45] LABS: PLATELET ESTIMATE DECREASED
[2021-08-12 13:40] LABS: HEPATITIS B SURFACE ANTIGEN NEGATIVE
[2021-08-12] MEDS: MIDODRINE HCL 5MG TABLET PO SCH ×2 (14:56→18:36)
[2021-08-12] MEDS: ENOXAPARIN 80MG/0.8ML SYR SUBCUT SCH (14:58)
[2021-08-13] VITALS (94 sets, daily range): BP systolic 91–139; BP diastolic 54–98
[2021-08-13] MEDS: FENTANYL CITRATE/PF 2,500 MCG in SODIUM CHLORIDE 0.9% 200 ML IV PRN ×3 (02:01→17:20)
[2021-08-13] MEDS: IPRATROPIUM BROMIDE (0.02%) 0.5MG/2.5ML NEB HHN SCH ×6 (04:03→21:04)
[2021-08-13] MEDS: PROPOFOL 10MG/ML 100ML 100 ML IV PRN ×5 (05:05→23:29)
[2021-08-13 05:15] LABS: HEMATOCRIT. 33.5 % (42.0-52.0); HEMOGLOBIN. 10.8 g/dL (14.0-18.0); MEAN CORPUSCULAR HEMOGLOBIN 30.3 pg (28.0-32.0); MEAN CORPUSCULAR VOLUME 93.7 fL (80.0-94.0); MEAN PLATELET VOLUME 10.6 fl (7.4-10.4); PLATELET 117 x1000/uL (130-400); RED BLOOD CELL COUNT 3.57 mill/uL (4.7-6.1); RED CELL DISTRIBUTION WIDTH 14.4 % (11.6-14.6)
[2021-08-13 05:24] LABS: CHLORIDE 104 mEq/L (98-107)
[2021-08-13 05:32] LABS: PHOSPHORUS 6.9 mg/dL (2.5-4.9)
[2021-08-13] MEDS: MIDAZOLAM HCL 100 MG in SODIUM CHLORIDE 0.9% 80 ML IV PRN ×2 (06:46→17:59)
[2021-08-13] MEDS: PHENYLEPHRINE 100 MG in DEXT 5% WATER 240 ML IV PRN (06:51)
[2021-08-13 08:14] LABS: BG BASE EXCESS -4.4 mmol/L (-2.0-2.0); BG CARBOXYHEMOGLOBIN 0.4 % (0.5-1.5); BG DEOXYHEMOGLOBIN 10.4 % (0.0-5.0); BG HCO3 ACT 22.7 mmol/L (22.0-26.0); BG METHEMOGLOBIN 0.1 % (0.0-1.5); BG OXYGEN SATURATION 89.5 % (92.0-98.5); BG OXYHEMOGLOBIN 89.1 % (94.0-97.0); BG PCO2 50.5 mmHg (35.0-45.0); BG PO2 62.7 mmHg (75.0-100.0); BG SAMPLE SITE RIGHT RADIAL; BG TOTAL HEMOGLOBIN 11.3 g/dL (12.0-18.0); BG VENT MODE VENT- PRVC
[2021-08-13] MEDS: FUROSEMIDE 100MG/10ML VIAL IVP SCH ×2 (09:16→20:49)
[2021-08-13] MEDS: FAMOTIDINE 20MG/2ML VIAL IV SCH (09:16)
[2021-08-13] MEDS: MIDODRINE HCL 5MG TABLET PO SCH ×3 (09:16→17:06)
[2021-08-13] MEDS: DEXAMETHASONE 10 MG/ML VIAL IV SCH (09:16)
[2021-08-13] MEDS: DOCUSATE SODIUM SUGAR FREE 100MG/10ML UDC NG SCH ×2 (09:16→17:06)
[2021-08-13] MEDS: ENOXAPARIN 80MG/0.8ML SYR SUBCUT SCH (09:17)
[2021-08-13 10:44] LABS: NUCLEATED RED BLOOD CELLS 1 /100 WBC; PLATELET ESTIMATE SLIGHTLY DECREASED
[2021-08-14] VITALS (96 sets, daily range): BP systolic 74–136; BP diastolic 33–88
[2021-08-14] MEDS: FENTANYL CITRATE/PF 2,500 MCG in SODIUM CHLORIDE 0.9% 200 ML IV PRN ×3 (00:45→16:25)
[2021-08-14] MEDS: IPRATROPIUM BROMIDE (0.02%) 0.5MG/2.5ML NEB HHN SCH ×6 (00:47→21:09)
[2021-08-14] MEDS: MIDAZOLAM HCL 100 MG in SODIUM CHLORIDE 0.9% 80 ML IV PRN ×2 (01:39→11:58)
[2021-08-14] MEDS: PROPOFOL 10MG/ML 100ML 100 ML IV PRN ×5 (03:46→23:10)
[2021-08-14 06:04] LABS: CHLORIDE 102 mEq/L (98-107)
[2021-08-14 06:11] LABS: PHOSPHORUS 6.5 mg/dL (2.5-4.9)
[2021-08-14 06:20] LABS: HEMATOCRIT. 34.3 % (42.0-52.0); MEAN CORPUSCULAR HEMOGLOBIN 29.8 pg (28.0-32.0); MEAN CORPUSCULAR VOLUME 93.1 fL (80.0-94.0); MEAN PLATELET VOLUME 10.6 fl (7.4-10.4); PLATELET 155 x1000/uL (130-400); RED BLOOD CELL COUNT 3.68 mill/uL (4.7-6.1); RED CELL DISTRIBUTION WIDTH 14.6 % (11.6-14.6)
[2021-08-14 08:40] LABS: BG BASE EXCESS -3.3 mmol/L (-2.0-2.0); BG CARBOXYHEMOGLOBIN 0.8 % (0.5-1.5); BG DEOXYHEMOGLOBIN 13.4 % (0.0-5.0); BG FRACTION INSPIRED OXYGEN 100; BG HCO3 ACT 23.5 mmol/L (22.0-26.0); BG METHEMOGLOBIN 0.4 % (0.0-1.5); BG OXYGEN SATURATION 86.4 % (92.0-98.5); BG OXYHEMOGLOBIN 85.4 % (94.0-97.0); BG PCO2 49.9 mmHg (35.0-45.0); BG PH 7.291 (7.350-7.450); BG PO2 56.9 mmHg (75.0-100.0); BG SAMPLE SITE LEFT RADIAL; BG TOTAL RESPIRATORY RATE 40 b/min; BG VENT MODE VENT- PRVC
[2021-08-14 08:50] LABS: NUCLEATED RED BLOOD CELLS 2 /100 WBC; PLATELET ESTIMATE NORMAL
[2021-08-14] MEDS: DOCUSATE SODIUM SUGAR FREE 100MG/10ML UDC NG SCH ×2 (08:52→18:19)
[2021-08-14] MEDS: FAMOTIDINE 20MG/2ML VIAL IV SCH (08:52)
[2021-08-14] MEDS: FUROSEMIDE 100MG/10ML VIAL IVP SCH ×2 (08:53→21:19)
[2021-08-14] MEDS: MIDODRINE HCL 5MG TABLET PO SCH ×3 (08:53→18:19)
[2021-08-14] MEDS: DEXAMETHASONE 10 MG/ML VIAL IV SCH (08:54)
[2021-08-14] MEDS: POLYVINYL ALCOHOL OPHTH DROPS 15ML BOTHEYE SCH ×3 (16:39→23:11)
[2021-08-14] MEDS: PHENYLEPHRINE 100 MG in DEXT 5% WATER 240 ML IV PRN (21:36)
[2021-08-15] VITALS (97 sets, daily range): BP systolic 89–135; BP diastolic 42–69
[2021-08-15] MEDS: MIDAZOLAM HCL 100 MG in SODIUM CHLORIDE 0.9% 80 ML IV PRN ×3 (00:07→18:31)
[2021-08-15] MEDS: IPRATROPIUM BROMIDE (0.02%) 0.5MG/2.5ML NEB HHN SCH ×5 (00:39→20:45)
[2021-08-15] MEDS: FENTANYL CITRATE/PF 2,500 MCG in SODIUM CHLORIDE 0.9% 200 ML IV PRN ×4 (01:12→23:18)
[2021-08-15] MEDS: PROPOFOL 10MG/ML 100ML 100 ML IV PRN ×5 (03:37→23:20)
[2021-08-15 05:36] LABS: HEMOGLOBIN. 10.1 g/dL (14.0-18.0); MEAN CORPUSCULAR HEMOGLOBIN 30.3 pg (28.0-32.0); MEAN CORPUSCULAR VOLUME 93.3 fL (80.0-94.0); PLATELET 160 x1000/uL (130-400); RED BLOOD CELL COUNT 3.33 mill/uL (4.7-6.1); RED CELL DISTRIBUTION WIDTH 14.6 % (11.6-14.6)
[2021-08-15] MEDS: POLYVINYL ALCOHOL OPHTH DROPS 15ML BOTHEYE SCH ×4 (05:49→23:18)
[2021-08-15] MEDS: FUROSEMIDE 100MG/10ML VIAL IVP SCH ×2 (09:09→21:08)
[2021-08-15] MEDS: DEXAMETHASONE 10 MG/ML VIAL IV SCH (09:09)
[2021-08-15] MEDS: DOCUSATE SODIUM SUGAR FREE 100MG/10ML UDC NG SCH ×2 (09:09→16:19)
[2021-08-15] MEDS: FAMOTIDINE 20MG/2ML VIAL IV SCH (09:09)
[2021-08-15] MEDS: MIDODRINE HCL 5MG TABLET PO SCH ×3 (09:10→16:20)
[2021-08-15 09:38] LABS: BG BASE EXCESS -5.7 mmol/L (-2.0-2.0); BG CARBOXYHEMOGLOBIN 0.4 % (0.5-1.5); BG DEOXYHEMOGLOBIN 30.1 % (0.0-5.0); BG FRACTION INSPIRED OXYGEN 100; BG HCO3 ACT 22.7 mmol/L (22.0-26.0); BG METHEMOGLOBIN 0.3 % (0.0-1.5); BG OXYGEN SATURATION 69.7 % (92.0-98.5); BG OXYHEMOGLOBIN 69.2 % (94.0-97.0); BG PCO2 59.3 mmHg (35.0-45.0); BG PH 7.201 (7.350-7.450); BG PO2 42.7 mmHg (75.0-100.0); BG SAMPLE SITE RIGHT RADIAL; BG TOTAL HEMOGLOBIN 11.2 g/dL (12.0-18.0); BG VENT MODE VENT - PRVC
[2021-08-15 12:20] LABS: BG BASE EXCESS -4.8 mmol/L (-2.0-2.0); BG CARBOXYHEMOGLOBIN 0.7 % (0.5-1.5); BG FRACTION INSPIRED OXYGEN 100; BG HCO3 ACT 23.7 mmol/L (22.0-26.0); BG METHEMOGLOBIN 0.4 % (0.0-1.5); BG OXYGEN SATURATION 81.8 % (92.0-98.5); BG OXYHEMOGLOBIN 80.9 % (94.0-97.0); BG PCO2 60.5 mmHg (35.0-45.0); BG PO2 53.5 mmHg (75.0-100.0); BG TOTAL HEMOGLOBIN 11.3 g/dL (12.0-18.0); BG VENT MODE PRVC
[2021-08-15 12:40] LABS: PLATELET ESTIMATE NORMAL
[2021-08-15] MEDS: ENOXAPARIN 80MG/0.8ML SYR SUBCUT SCH (13:28)
[2021-08-16] VITALS (98 sets, daily range): BP systolic 95–164; BP diastolic 41–92
[2021-08-16] MEDS: IPRATROPIUM BROMIDE (0.02%) 0.5MG/2.5ML NEB HHN SCH ×7 (00:09→23:55)
[2021-08-16] MEDS: PROPOFOL 10MG/ML 100ML 100 ML IV PRN ×3 (04:13→21:22)
[2021-08-16 05:40] LABS: HEMATOCRIT. 32.4 % (42.0-52.0); HEMOGLOBIN. 10.5 g/dL (14.0-18.0); MEAN CORPUSCULAR HEMOGLOBIN 30.6 pg (28.0-32.0); MEAN CORPUSCULAR VOLUME 94.8 fL (80.0-94.0); MEAN PLATELET VOLUME 9.9 fl (7.4-10.4); PLATELET 171 x1000/uL (130-400); RED BLOOD CELL COUNT 3.42 mill/uL (4.7-6.1); RED CELL DISTRIBUTION WIDTH 15.2 % (11.6-14.6)
[2021-08-16] MEDS: POLYVINYL ALCOHOL OPHTH DROPS 15ML BOTHEYE SCH ×4 (06:12→23:40)
[2021-08-16 06:26] LABS: PHOSPHORUS 10.1 mg/dL (2.5-4.9)
[2021-08-16] MEDS: FAMOTIDINE 20MG/2ML VIAL IV SCH (08:04)
[2021-08-16] MEDS: DOCUSATE SODIUM SUGAR FREE 100MG/10ML UDC NG SCH ×2 (08:04→17:46)
[2021-08-16] MEDS: DEXAMETHASONE 10 MG/ML VIAL IV SCH (08:04)
[2021-08-16] MEDS: FUROSEMIDE 100MG/10ML VIAL IVP SCH (08:04)
[2021-08-16] MEDS: FENTANYL CITRATE/PF 2,500 MCG in SODIUM CHLORIDE 0.9% 200 ML IV PRN ×3 (08:04→23:39)
[2021-08-16] MEDS: ENOXAPARIN 80MG/0.8ML SYR SUBCUT SCH (08:06)
[2021-08-16] MEDS: MIDODRINE HCL 5MG TABLET PO SCH ×3 (08:07→17:46)
[2021-08-16] MEDS: MIDAZOLAM HCL 100 MG in SODIUM CHLORIDE 0.9% 80 ML IV PRN ×2 (08:08→17:47)
[2021-08-16 09:42] LABS: BG BASE EXCESS -7.8 mmol/L (-2.0-2.0); BG CARBOXYHEMOGLOBIN 1.1 % (0.5-1.5); BG DEOXYHEMOGLOBIN 17.1 % (0.0-5.0); BG FRACTION INSPIRED OXYGEN 100; BG HCO3 ACT 20.5 mmol/L (22.0-26.0); BG METHEMOGLOBIN 0.4 % (0.0-1.5); BG OXYGEN SATURATION 82.6 % (92.0-98.5); BG OXYHEMOGLOBIN 81.4 % (94.0-97.0); BG PCO2 54.5 mmHg (35.0-45.0); BG PH 7.194 (7.350-7.450); BG PO2 56.5 mmHg (75.0-100.0); BG SAMPLE SITE RIGHT RADIAL; BG TOTAL HEMOGLOBIN 11.6 g/dL (12.0-18.0); BG VENT MODE PRVC
[2021-08-16 11:00] LABS: NUCLEATED RED BLOOD CELLS 1 /100 WBC; PLATELET ESTIMATE NORMAL
[2021-08-16 17:39] LABS: BG BASE EXCESS -4.7 mmol/L (-2.0-2.0); BG DEOXYHEMOGLOBIN 9.1 % (0.0-5.0); BG FRACTION INSPIRED OXYGEN 100; BG METHEMOGLOBIN 0.4 % (0.0-1.5); BG OXYGEN SATURATION 90.8 % (92.0-98.5); BG OXYHEMOGLOBIN 89.5 % (94.0-97.0); BG PCO2 54.1 mmHg (35.0-45.0); BG PH 7.246 (7.350-7.450); BG PO2 69.5 mmHg (75.0-100.0); BG SAMPLE SITE RIGHT RADIAL; BG TOTAL HEMOGLOBIN 12.3 g/dL (12.0-18.0); BG VENT MODE PRVC
[2021-08-17] VITALS (96 sets, daily range): BP systolic 108–149; BP diastolic 56–84
[2021-08-17] MEDS: PROPOFOL 10MG/ML 100ML 100 ML IV PRN ×5 (02:22→23:51)
[2021-08-17] MEDS: IPRATROPIUM BROMIDE (0.02%) 0.5MG/2.5ML NEB HHN SCH ×5 (04:02→20:36)
[2021-08-17 05:30] LABS: HEMATOCRIT. 33.8 % (42.0-52.0); HEMOGLOBIN. 10.8 g/dL (14.0-18.0); MEAN CORPUSCULAR HEMOGLOBIN 30.2 pg (28.0-32.0); MEAN CORPUSCULAR VOLUME 94.5 fL (80.0-94.0); MEAN PLATELET VOLUME 9.1 fl (7.4-10.4); PLATELET 189 x1000/uL (130-400); RED BLOOD CELL COUNT 3.57 mill/uL (4.7-6.1); RED CELL DISTRIBUTION WIDTH 15.5 % (11.6-14.6)
[2021-08-17] MEDS: POLYVINYL ALCOHOL OPHTH DROPS 15ML BOTHEYE SCH ×3 (06:09→17:54)
[2021-08-17] MEDS: MIDAZOLAM HCL 100 MG in SODIUM CHLORIDE 0.9% 80 ML IV PRN ×2 (06:10→17:26)
[2021-08-17] MEDS: FENTANYL CITRATE/PF 2,500 MCG in SODIUM CHLORIDE 0.9% 200 ML IV PRN ×2 (06:10→15:48)
[2021-08-17 07:11] LABS: PHOSPHORUS 9.3 mg/dL (2.5-4.9)
[2021-08-17 09:33] LABS: BG BASE EXCESS -7.1 mmol/L (-2.0-2.0); BG CARBOXYHEMOGLOBIN 1.3 % (0.5-1.5); BG DEOXYHEMOGLOBIN 22.5 % (0.0-5.0); BG FRACTION INSPIRED OXYGEN 100; BG HCO3 ACT 21.6 mmol/L (22.0-26.0); BG METHEMOGLOBIN 0.4 % (0.0-1.5); BG OXYGEN SATURATION 77.1 % (92.0-98.5); BG OXYHEMOGLOBIN 75.8 % (94.0-97.0); BG PCO2 58.3 mmHg (35.0-45.0); BG PH 7.186 (7.350-7.450); BG PO2 50.1 mmHg (75.0-100.0); BG SAMPLE SITE RIGHT RADIAL; BG TOTAL HEMOGLOBIN 11.9 g/dL (12.0-18.0); BG VENT MODE PRVC
[2021-08-17] MEDS: DEXAMETHASONE 10 MG/ML VIAL IV SCH (09:36)
[2021-08-17] MEDS: FAMOTIDINE 20MG/2ML VIAL IV SCH (09:36)
[2021-08-17] MEDS: DOCUSATE SODIUM SUGAR FREE 100MG/10ML UDC NG SCH ×2 (09:36→17:25)
[2021-08-17] MEDS: ENOXAPARIN 80MG/0.8ML SYR SUBCUT SCH (09:37)
[2021-08-17] MEDS: MIDODRINE HCL 5MG TABLET PO SCH ×3 (09:37→17:26)
[2021-08-17 09:54] LABS: NUCLEATED RED BLOOD CELLS 4 /100 WBC
[2021-08-17 09:56] LABS: PLATELET ESTIMATE NORMAL
[2021-08-17 15:27] LABS: BG BASE EXCESS -5.6 mmol/L (-2.0-2.0); BG CARBOXYHEMOGLOBIN 1.5 % (0.5-1.5); BG DEOXYHEMOGLOBIN 20.7 % (0.0-5.0); BG FRACTION INSPIRED OXYGEN 100; BG HCO3 ACT 23.3 mmol/L (22.0-26.0); BG METHEMOGLOBIN 0.4 % (0.0-1.5); BG OXYGEN SATURATION 78.9 % (92.0-98.5); BG OXYHEMOGLOBIN 77.4 % (94.0-97.0); BG PH 7.192 (7.350-7.450); BG PO2 51.9 mmHg (75.0-100.0); BG SAMPLE SITE RIGHT RADIAL; BG TOTAL HEMOGLOBIN 11.9 g/dL (12.0-18.0); BG VENT MODE PRVC
[2021-08-18] VITALS (79 sets, daily range): BP systolic 81–219; BP diastolic 24–110
[2021-08-18] MEDS: FENTANYL CITRATE/PF 2,500 MCG in SODIUM CHLORIDE 0.9% 200 ML IV PRN ×3 (00:17→14:51)
[2021-08-18] MEDS: IPRATROPIUM BROMIDE (0.02%) 0.5MG/2.5ML NEB HHN SCH ×6 (00:29→20:05)
[2021-08-18] MEDS: POLYVINYL ALCOHOL OPHTH DROPS 15ML BOTHEYE SCH ×4 (02:43→17:53)
[2021-08-18] MEDS: PROPOFOL 10MG/ML 100ML 100 ML IV PRN ×2 (05:19→10:32)
[2021-08-18] MEDS: MIDAZOLAM HCL 100 MG in SODIUM CHLORIDE 0.9% 80 ML IV PRN ×2 (05:21→16:42)
[2021-08-18] MEDS: MIDODRINE HCL 5MG TABLET PO SCH ×4 (09:00→16:40)
[2021-08-18 09:01] LABS: BG BASE EXCESS -7.3 mmol/L (-2.0-2.0); BG CARBOXYHEMOGLOBIN 0.8 % (0.5-1.5); BG DEOXYHEMOGLOBIN 15.1 % (0.0-5.0); BG FRACTION INSPIRED OXYGEN 100; BG METHEMOGLOBIN 0.8 % (0.0-1.5); BG OXYGEN SATURATION 84.7 % (92.0-98.5); BG OXYHEMOGLOBIN 83.3 % (94.0-97.0); BG PCO2 54.9 mmHg (35.0-45.0); BG PH 7.201 (7.350-7.450); BG PO2 59.8 mmHg (75.0-100.0); BG SAMPLE SITE LEFT RADIAL; BG TOTAL HEMOGLOBIN 12.1 g/dL (12.0-18.0); BG TOTAL RESPIRATORY RATE 40 b/min; BG VENT MODE PRVC
[2021-08-18 09:10] LABS: HEMATOCRIT. 33.2 % (42.0-52.0); HEMOGLOBIN. 10.5 g/dL (14.0-18.0); MEAN CORPUSCULAR HEMOGLOBIN 30.6 pg (28.0-32.0); MEAN CORPUSCULAR VOLUME 96.6 fL (80.0-94.0); MEAN PLATELET VOLUME 9.1 fl (7.4-10.4); PLATELET 170 x1000/uL (130-400); RED BLOOD CELL COUNT 3.44 mill/uL (4.7-6.1)
[2021-08-18] MEDS ORDERED: MAGNESIUM SULFATE 4G IN WATER 100ML PREMIX IV ONE (10:27)
[2021-08-18] MEDS ORDERED: CALCIUM CHLORIDE 1GM/10ML SYR IV ONE (10:27)
[2021-08-18] MEDS ORDERED: EPINEPHRINE 0.1MG/ML (1:10,000) 10ML SYR ONE (10:27)
[2021-08-18] MEDS ORDERED: SODIUM BICARBONATE 8.4% 1 MEQ/ML 50ML SYR IV ONE (10:27)
[2021-08-18] MEDS: FAMOTIDINE 20MG/2ML VIAL IV SCH (10:28)
[2021-08-18] MEDS: DOCUSATE SODIUM SUGAR FREE 100MG/10ML UDC NG SCH ×2 (10:28→16:41)
[2021-08-18] MEDS: ENOXAPARIN 80MG/0.8ML SYR SUBCUT SCH (10:30)
[2021-08-18] MEDS: DEXAMETHASONE 10 MG/ML VIAL IV SCH (10:31)
[2021-08-18 10:48] LABS: NUCLEATED RED BLOOD CELLS 3 /100 WBC; PLATELET ESTIMATE NORMAL
[2021-08-18] MEDS ORDERED: POLYETHYLENE GLYCOL 3350 (17GM) 1 DOSE PACK PO SCH (12:00)
[2021-08-18] MEDS ORDERED: NA PHOS,M-B/NA PHOS,DI-BA ENEMA 118ML PR NR (12:00)
[2021-08-18] MEDS ORDERED: PROPOFOL 10MG/ML 100ML 100 ML IV PRN (12:30)
[2021-08-18] MEDS ORDERED: ENOXAPARIN 80MG/0.8ML SYR SUBCUT SCH (13:57)
[2021-08-18] MEDS ORDERED: PANTOPRAZOLE SODIUM 40 MG/VIAL IV NR (16:01)
[2021-08-18 20:51] LABS: HEMATOCRIT. 37.8 % (42.0-52.0); MEAN CORPUSCULAR HEMOGLOBIN 30.6 pg (28.0-32.0); MEAN CORPUSCULAR VOLUME 96.8 fL (80.0-94.0); MEAN PLATELET VOLUME 9.5 fl (7.4-10.4); PLATELET 150 x1000/uL (130-400); RED BLOOD CELL COUNT 3.91 mill/uL (4.7-6.1); RED CELL DISTRIBUTION WIDTH 16.7 % (11.6-14.6)
[2021-08-18 21:13] LABS: NUCLEATED RED BLOOD CELLS 2 /100 WBC; PLATELET ESTIMATE NORMAL
[2021-08-19] MEDS ORDERED: PANTOPRAZOLE SODIUM 40 MG/VIAL IV SCH (09:00)
== END 2021-08-18 21:10 | DRG 720 ==
LOC: ER 13:56 → MICUSO 20:41 → EDBEDREQTM 20:51 → EDBEDREQSVC 20:51 → EDBEDREQ 20:51 → SUPCPDRO 21:03 → 7WST 07-27 07:22 → MICUSO 08-03 17:06 → MICUNO 08-10 00:44
PROVIDERS: ADMIT Internal Medicine; ATTEND Internal Medicine
PROC: 5A09357 Assistance with Respiratory Ventilation, Less than 24 Consecutive Hours, Continuous Positive Airway Pressure (ICD-10-PCS; 2021-07-30)
PROC: 5A09557 Assistance with Respiratory Ventilation, Greater than 96 Consecutive Hours, Continuous Positive Airway Pressure (ICD-10-PCS; 2021-07-31)
PROC: 05H533Z Insertion of Infusion Device into Right Subclavian Vein, Percutaneous Approach (ICD-10-PCS; 2021-08-04)
PROC: B546ZZA Ultrasonography of Right Subclavian Vein, Guidance (ICD-10-PCS; 2021-08-04)
PROC: 5A1955Z Respiratory Ventilation, Greater than 96 Consecutive Hours (ICD-10-PCS; principal; 2021-08-06)
PROC: 0BH17EZ Insertion of Endotracheal Airway into Trachea, Via Natural or Artificial Opening (ICD-10-PCS; 2021-08-06)
PROC: 0W9B30Z Drainage of Left Pleural Cavity with Drainage Device, Percutaneous Approach (ICD-10-PCS; 2021-08-06)
PROC: 02HV33Z Insertion of Infusion Device into Superior Vena Cava, Percutaneous Approach (ICD-10-PCS; 2021-08-12)
PROC: B548ZZA Ultrasonography of Superior Vena Cava, Guidance (ICD-10-PCS; 2021-08-12)
PROC: 5A1D70Z Performance of Urinary Filtration, Intermittent, Less than 6 Hours Per Day (ICD-10-PCS; 2021-08-12)
PROC: 5A1D70Z Performance of Urinary Filtration, Intermittent, Less than 6 Hours Per Day (ICD-10-PCS; 2021-08-14)
PROC: 5A1D70Z Performance of Urinary Filtration, Intermittent, Less than 6 Hours Per Day (ICD-10-PCS; 2021-08-16)
PROC: 5A12012 Performance of Cardiac Output, Single, Manual (ICD-10-PCS; 2021-08-18)
PROC: 5A1D70Z Performance of Urinary Filtration, Intermittent, Less than 6 Hours Per Day (ICD-10-PCS; 2021-08-18)
DX: A41.89 Other specified sepsis (principal); J12.82 Pneumonia due to coronavirus disease 2019; J96.01 Acute respiratory failure with hypoxia; J96.02 Acute respiratory failure with hypercapnia; R65.21 Severe sepsis with septic shock; U07.1 COVID-19; D69.6 Thrombocytopenia, unspecified; J93.9 Pneumothorax, unspecified; E87.1 Hypo-osmolality and hyponatremia; K75.81 Nonalcoholic steatohepatitis (NASH); B36.9 Superficial mycosis, unspecified; D64.9 Anemia, unspecified; N17.9 Acute kidney failure, unspecified; E87.4 Mixed disorder of acid-base balance; Y83.8 Other surgical procedures as the cause of abnormal reaction of the patient, or of later complication, without mention of misadventure at the time of the procedure; Y92.238 Other place in hospital as the place of occurrence of the external cause; K56.7 Ileus, unspecified; E87.5 Hyperkalemia; K92.2 Gastrointestinal hemorrhage, unspecified; Z82.49 Family history of ischemic heart disease and other diseases of the circulatory system; Z87.891 Personal history of nicotine dependence; Z99.2 Dependence on renal dialysis; T79.7XXA Traumatic subcutaneous emphysema, initial encounter
CPT/HCPCS: 31500; 36415; 36556; 36600; 71045; 74018; 76705; 76937; 80048; 80053; 80202; 80305; 80320; 81003; 82375; 82728; 82805; 82962; 83540; 83550; 83605; 83615; 83735; 83880; 84100; 84145; 84478; 84484; 85025; 85044; 85379; 86140; 86705; 86706; 86709; 86803; 86850; 86900; 87340; 87426; 92950; 93005; 93306; 93970; 94002; 94003; 94640; 94660; 94760; 99291; A6261; C1725; C1752; C1893; C9113; J0330; J0456; J0692; J0696; J1100; J1650; J1940; J1956; J2250; J2270; J2370; J2704; J2930; J3010; J3370; J3475; J3490; J7030; J7040; J7050; J7060; P9047; Q0163; A4315; G0480